=== PATIENT | male | born 1985 | race Hispanic/Latino ===

== ENCOUNTER 2022-12-13 22:01 | Emergency (ER) | payer BC, SELFPAY ==
[2022-12-13] MEDS ORDERED: Ketorolac Tromethamine 30 MG/ML VIAL ONE (23:16)
== END 2022-12-14 01:23 | disposition home or self-care (01) ==
LOC: ERS 22:01
DX: M10.071 Idiopathic gout, right ankle and foot (principal)
CPT/HCPCS: 36415; 84550; 96372; J1885